=== PATIENT | female | born 1945 | race Caucasian/White ===

== ENCOUNTER → 2024-05-27 10:15 | Outpatient (CLI) | payer MEDICARE, BC, SELFPAY ==
--- NOTE | 2024-05-27 10:22 | DI.ECHO.S_ITS ---
[place] [facility] : : [address] : : [place] : : [id number] : : Phone: [phone] Echocardiogram Report + + :Name: ROGELIO JAMA Study Date: 05/27/2024 Height: 66 in : :Hospital ReadingLocation: Weight: 205 lb : : Gender: Female BSA: 2.0 m2 : :: 1945 Age: 78 yrs BP: 139/78 mmHg: :Reason For Study: DYSPNEA : :Ordering Physician: JUAN FRANCISCO, : :KATIE Performed By: Pam Cabrera : :Referring: KATIE CHICAS : + + Interpretation Summary Normal sinus rhythm. Normal LV size, wall thickness, wall motion and LV systolic function. EF is 60-65%. Normal chamber sizes. No significant valvular abnormalities. No prior study available for comparison. Procedure: A two-dimensional transthoracic echocardiogram with color flow and Doppler was performed. The study quality was technically adequate. There is no prior echocardiogram noted for this patient. The patient was in sinus rhythm with heart rates between 68-75 bpm during the exam. Left Ventricle: The left ventricle is normal in size and wall thickness. The ejection fraction is estimated to be 60-65%. Right Ventricle: The right ventricle is at the upper limits of normal in size. The right ventricular systolic function is normal. Atria: The left atrial size is normal. Right atrial size is normal. There is no Doppler evidence for an interatrial shunt. Mitral Valve: The mitral valve is normal in structure and function. There is trace mitral regurgitation. Aortic Valve: The aortic valve is trileaflet. The aortic valve opens well. There is no aortic valve stenosis. No aortic regurgitation is present. Tricuspid Valve: The tricuspid valve is normal in structure and function. There is a trace or physiologic amount of tricuspid regurgitation. Pulmonary artery pressures cannot be estimated because of the lack of a measurable TR jet velocity. Pulmonic Valve: The pulmonic valve leaflets are thin and pliable; valve motion is normal. There is no pulmonic valvular regurgitation. Great Vessels: The aortic root is normal size. The dimensions of the ascending aorta are normal. The IVC is of normal diameter and collapses greater than 50% with a sniff. This suggests a low right atrial pressure of 3 mm Hg. Pericardium/ Pleura There is no pericardial effusion. There is no pleural effusion. MMode/2D Measurements & Calculations LVIDd: 4.4 cm LVOT diam: 2.0 cm LVIDs: 3.0 cm Ao root diam: 3.1 cm FS: 31.2 % asc Aorta Diam: 3.2 cm IVSd: 0.88 cm Ao Arch Diam (Prox Trans): 2.5 cm LVPWd: 1.0 cm LV dodd. diameter/BSA (cm/m^2): 2.2 LV sys. diameter/BSA (cm/m^2): 1.5 LA A2 area: 18.8 cm2 RA long axis: 4.7 cm LA A4 area: 16.1 cm2 RA area: 15.6 cm2 LA length (vol): 4.7 cm RA vol: 44.0 ml LA vol: 54.6 ml RA : 21.8 ml/m2 LA vol index: 27.0 ml/m2 IVC diam: 1.3 cm RVD1 (basal): 4.1 cm TAPSE: 2.0 cm Doppler Measurements & Calculations Ao V2 max: 128.8 cm/sec LVOT Max Harjeet: 86.7 cm/sec Ao V2 mean: 100.7 cm/sec LV V1 max P.0 mmHg Ao max P.6 mmHg LV V1 VTI: 20.5 cm Ao mean P.3 mmHg CARLO(I,D): 1.9 cm2 Ao V2 VTI: 32.2 cm CARLO(V,D): 2.0 cm2 sev ratio: 0.64 CARLO indexed to BSA (cm^2/m^2): 0.95 MV E max harjeet: 79.9 cm/sec PA V2 max: 88.2 cm/sec MV A max harjeet: 107.1 cm/sec PA V2 mean: 65.4 cm/sec MV E/A: 0.75 PA mean P.8 mmHg Med Peak E' Harjeet: 8.9 cm/sec PA pr(Accel): 32.8 mmHg E/E' med: 9.0 Lat Peak E' Harjeet: 7.2 cm/sec E/E' lat: 11.1 E/e' average: 10.0 MV dec time: 0.25 sec SV(LVOT): 61.9 ml Electronically signed by: Katie Chicas M.D. on Reading Physician:05/27/2024 10:18 PM
== END ==
PROVIDERS: Referring Provider Internal Medicine; Visit Provider Internal Medicine
DX: R06.09 Other forms of dyspnea (principal); J02.9 Acute pharyngitis, unspecified; R05.9 Cough, unspecified
CPT/HCPCS: 0241U; 71046; 87070; 93306

== ENCOUNTER → 2024-05-27 12:34 | Outpatient (CLI) | payer MEDICARE, BC, SELFPAY ==
[2024-05-27 13:31] LABS: Influenza A - CEPHEID Flu A NEGATIVE (NEGATIVE); Influenza B - CEPHEID Flu B NEGATIVE (NEGATIVE); Respiratory Syncytial Virus Negative (Negative)
[2024-05-27 14:07] LABS: COVID-19 CEPHEID 4-PLEX PCR Negative (Negative)
== END ==
PROVIDERS: Visit Provider Nurse Practitioner Family
DX: J02.9 Acute pharyngitis, unspecified (principal); R05.9 Cough, unspecified
CPT/HCPCS: 0241U; 87070

== ENCOUNTER → 2024-05-27 12:36 | Outpatient (CLI) | payer MEDICARE, BC, SELFPAY ==
--- NOTE | 2024-05-27 12:38 | DI.RAD.S_ITS ---
PROCEDURE: XR CHEST 2V INDICATIONS: Cough TECHNIQUE: 2 views of the chest were acquired. COMPARISON: None. FINDINGS: Surgical changes and devices: Monitoring devices overlying the left hemithorax. Lungs and pleura: Lungs are clear. No pleural effusions or pneumothorax. Mediastinum: Mediastinal contours are normal. Heart size is normal. Bones and chest wall: No suspicious bony abnormalities. Soft tissues appear unremarkable. IMPRESSION: No acute pulmonary process. Dictated by: Charlotte Nunn M.D. on 05/27/2024 at 15:00 Approved by: Charlotte Nunn M.D. on 05/27/2024 at 15:01
== END ==
PROVIDERS: Referring Provider Nurse Practitioner Family; Visit Provider Nurse Practitioner Family
DX: R05.9 Cough, unspecified (principal)
CPT/HCPCS: 71046